=== PATIENT | male | born 1970 ===

== ENCOUNTER 2023-10-02 15:11 | Outpatient (REF) | payer OTHER, SELFPAY ==
[2023-10-02 19:53] LABS: ALT 21 U/L (16-63); AST 11 U/L (15-37); Albumin 3.2 g/dL (3.4-5.0); Alkaline Phosphatase 86 U/L (46-116); Anion Gap 5.4 mmol/L (3-11); BUN 12 mg/dL (7-18); Bilirubin, Total 0.4 mg/dL (0.2-1.0); CO2 30.6 mmol/L (21.0-32.0); CREATININE 0.9 mg/dL (0.70-1.30); Chloride 101 mmol/L (98-107); Glucose 173 mg/dL (74-106); Potassium 4.1 mmol/L (3.5-5.1); Sodium 137 mmol/L (136-145); Total Protein 7.1 g/dL (6.4-8.2)
[2023-10-02 20:05] LABS: COMMENT (LAB VIEW ONLY) 99.53 mg/dL; Microalb ug/mg Crea 11.2 ug/mg Cr
[2023-10-02 20:15] LABS: Hemoglobin A1C 9.3 % (<5.7)
== END 2023-10-02 15:12 | disposition home or self-care (01) ==
LOC: NCHCN 15:11
PROVIDERS: Visit Provider Nurse Practitioner Family
DX: E11.65 Type 2 diabetes mellitus with hyperglycemia (principal)
CPT/HCPCS: 80053; 82043; 82570; 83036